=== PATIENT | female | born 1950 | race Caucasian/White ===

== ENCOUNTER 2018-03-15 05:55 | Day surgery (SDC) | payer OTHER ==
[~2018-03-15 05:55] MED LIST: ALLERTEC PO; COZAAR25 MG PO; JANUVIA100 MG PO; LOVAZA1 GM PO; SYNTHROID100 MCG PO; TRILIPIX135 MG PO; ZINC LOZENGES1 EACH PO; [UNRECOGNIZED DRUG - OTHER] PO
== END 2018-03-15 11:00 | disposition home or self-care (01) ==
LOC: CIR.AMB 05:55
DX: M18.11 Unilateral primary osteoarthritis of first carpometacarpal joint, right hand (principal)

== ENCOUNTER 2021-11-19 12:58 | Emergency (ER) | payer OTHER ==
[~2021-11-19] VITALS: Ht 152.4 cm; Wt 78.5 kg
[2021-11-19] MEDS ORDERED: LEVSIN/SL0.125 MG SL (19:35)
[2021-11-19] MEDS ORDERED: PEPCID AC20 MG PO (19:35)
[2021-11-19] MEDS ORDERED: CIPRO500 MG PO (19:35)
== END 2021-11-19 20:32 | disposition home or self-care (01) ==
LOC: ER 12:58
DX: R10.32 Left lower quadrant pain (principal); K57.30 Diverticulosis of large intestine without perforation or abscess without bleeding; E11.9 Type 2 diabetes mellitus without complications; Z79.84 Long term (current) use of oral hypoglycemic drugs; I10 Essential (primary) hypertension